=== PATIENT | female | born 2000 | race Two or more races ===

== ENCOUNTER 2020-10-15 16:36 | Emergency (ER) | payer SELFPAY ==
[~2020-10-15] VITALS: Ht 152.4 cm; Wt 68.9 kg
[2020-10-15 17:32] VITALS: BP 113/69
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
--- NOTE | 2020-10-15 17:51 | NUR ---
PT AMB TO [facility]
[2020-10-15] MEDS ORDERED: cefTRIAXone 250 MG in LIDOCAINE MPF 1% 0.9 ML IM ONE (17:55)
[2020-10-15] MEDS ORDERED: AZITHROMYCIN 250 MG TAB PO ONE (17:55)
[2020-10-15] MEDS ORDERED: cefTRIAXone 250 MG VIAL ONE ×2 (18:39→18:40)
[2020-10-15] MEDS ORDERED: LIDOCAINE MPF 1% 5 ML ONE (18:40)
[2020-10-15 18:54] VITALS: BP 113/69
--- NOTE | 2020-10-15 18:54 | NUR ---
Patient discharged with v/s stable. Written and verbal after care instructions given and explained. Patient verbalized understanding. Ambulatory with steady gait. All questions addressed prior to discharge. Advised to follow up with PMD.
== END 2020-10-15 18:54 | disposition home or self-care (01) ==
LOC: MED 16:36
DX: R30.0 Dysuria (principal); Z11.3 Encounter for screening for infections with a predominantly sexual mode of transmission
CPT/HCPCS: 36415; 81002; 81025; 96372; 99283; J0696; J2001